=== PATIENT | female | born 1970 | race African-American/Black ===

== ENCOUNTER 2017-12-05 07:40 | Emergency (ER) | payer MEDICAID ==
[~2017-12-05] VITALS: Ht 170.2 cm; Wt 104.3 kg
[2017-12-05 07:55] VITALS: BP 176/97
[2017-12-05] MEDS ORDERED: IBUPROFEN 800 MG TAB PO ONE (10:00)
== END 2017-12-05 10:09 | disposition home or self-care (01) ==
LOC: ER 07:40
DX: M77.52 Other enthesopathy of left foot and ankle (principal)
CPT/HCPCS: 73610

== ENCOUNTER 2018-08-06 18:25 | Emergency (ER) | payer MEDICAID ==
[~2018-08-06] VITALS: Ht 170.2 cm; Wt 104.3 kg
[2018-08-06 22:08] VITALS: BP 137/84
[2018-08-06] MEDS ORDERED: HYDROcodone-ACET 10/325MG TAB PO ONE (22:45)
[2018-08-06] MEDS ORDERED: IBUPROFEN 800 MG TAB PO ONE (23:00)
== END 2018-08-06 23:27 | disposition home or self-care (01) ==
LOC: ER 18:25
DX: M62.838 Other muscle spasm (principal); V48.5XXA Car driver injured in noncollision transport accident in traffic accident, initial encounter; Y93.89 Activity, other specified; Y99.8 Other external cause status; Y92.89 Other specified places as the place of occurrence of the external cause
CPT/HCPCS: 72040; 72100

== ENCOUNTER 2018-08-25 18:45 | Emergency (ER) | payer MEDICAID ==
[~2018-08-25] VITALS: Ht 170.2 cm; Wt 106.6 kg
[2018-08-25 19:01] VITALS: BP 163/92
[2018-08-25] MEDS ORDERED: KETOROLAC TROMETH 60MG/2ML VIAL IM ONE (22:15)
[2018-08-25] MEDS ORDERED: methylPREDNISolone SOD SUCC 125 MG/2 ML VL IM ONE (22:15)
== END 2018-08-25 22:46 | disposition home or self-care (01) ==
LOC: ER 18:48
DX: S33.5XXA Sprain of ligaments of lumbar spine, initial encounter (principal); M62.838 Other muscle spasm; V43.52XA Car driver injured in collision with other type car in traffic accident, initial encounter; Y93.89 Activity, other specified; Y92.488 Other paved roadways as the place of occurrence of the external cause; Y99.8 Other external cause status
CPT/HCPCS: 96372; 99284; J1885; J2930

== ENCOUNTER 2023-11-07 14:13 | Emergency (ER) | payer MEDICAID ==
[~2023-11-07] VITALS: Ht 170.2 cm; Wt 123.3 kg
[~2023-11-07 14:13] MED LIST: ACET500T58 PO; ALBU108A5 IN; BENZ100C19 PO; LORA-483 GT
[2023-11-07 15:06] LABS: Basophils # (auto) 0 10 ^3/uL (0-0.2); Basophils % (auto) 0.6 % (0.0-2.0); Eosinophils # (auto) 0.1 10 ^3/uL (0-0.8); Eosinophils % (auto) 1.6 % (0.0-7.0); Hematocrit 37.5 % (36.0-46.0); Hemoglobin 12.1 g/dL (12.2-16.2); Lymphocytes # (auto) 1.9 10 ^3/uL (0.4-5.4); Lymphocytes % (auto) 35.5 % (10.0-50.0); Mean Corpuscular Hemoglobin 27.7 pg (28.0-32.0); Mean Corpuscular Hgb Conc. 32.4 g/dL (32.0-36.0); Mean Corpuscular Volume 85.5 fL (80.0-100.0); Monocytes # (auto) 0.3 10 ^3/uL (0-1.3); Monocytes % (auto) 6.5 % (0.0-12.0); Neutrophils % (auto) 55.8 % (37.0-80.0); Red Blood Cells 4.39 10^6/uL (4.0-5.20); Red Cell Distribution Width 15.6 % (11.8-14.3); White Blood Cell 5.3 10^3/uL (4.4-10.8)
[2023-11-07] MEDS ORDERED: FURO1TAB33 PO (15:08)
[2023-11-07 15:29] LABS: INR 0.98 (0.9-1.15); Prothrombin Time 10.3 sec (9.3-11.8)
[2023-11-07 16:15] LABS: Alanine Aminotransferase 25 U/L (7-40); Albumin 4.3 g/dL (3.2-4.8); Alkaline Phosphatase 69 U/L (46-116); Anion Gap 8 (5-15); Aspartate Aminotransferase 28 U/L (13-40); BUN/Creatinine Ratio 11.9 (10.0-20.0); Bilirubin, Total 0.7 mg/dL (0.2-1.0); Blood Urea Nitrogen 12 mg/dL (9-23); Calcium 9.4 mg/dL (8.5-10.1); Carbon Dioxide 24 mmol/L (20-30); Chloride 107 mmol/L (98-107); Glucose 90 mg/dL (74-106); Potassium 4.1 mmol/L (3.5-5.1); Sodium 139 mmol/L (136-145)
[2023-11-07 18:08] VITALS: BP 122/76; PULSE 64; RESP 20; TEMP 97.7; O2SAT 100
== END 2023-11-07 18:09 | disposition home or self-care (01) ==
LOC: ER 14:13
DX: R60.0 Localized edema (principal); I10 Essential (primary) hypertension
CPT/HCPCS: 36415; 71045; 80053; 83880; 84484; 85025; 85610; 93005; 93970

== ENCOUNTER 2025-04-07 13:59 | Emergency (ER) | payer MEDICAID ==
[~2025-04-07] VITALS: Ht 170.2 cm; Wt 126.4 kg
[~2025-04-07 13:59] MED LIST changes: +FURO1TAB33 PO
--- NOTE | 2025-04-07 14:46 | DVH ---
CLINICAL INDICATION: right lumbar and flank pain TECHNIQUE: 3 radiographic views of the lumbar spine were obtained. Comparison: None FINDINGS/IMPRESSION: There is no evidence of acute fracture or dislocation. The visualized joint space is well maintained. The alignment is anatomical. There is no radiopaque foreign body. HS:Y
[2025-04-07 14:52] LABS: Basophils # (auto) 0 10 ^3/uL (0-0.2); Basophils % (auto) 0.4 % (0.0-2.0); Eosinophils # (auto) 0.1 10 ^3/uL (0-0.8); Eosinophils % (auto) 1.1 % (0.0-7.0); Hematocrit 42.3 % (36.0-46.0); Lymphocytes # (auto) 2.4 10 ^3/uL (0.4-5.4); Lymphocytes % (auto) 39.6 % (10.0-50.0); Mean Corpuscular Hgb Conc. 33.1 g/dL (32.0-36.0); Mean Corpuscular Volume 81.4 fL (80.0-100.0); Monocytes # (auto) 0.4 10 ^3/uL (0-1.3); Monocytes % (auto) 6.8 % (0.0-12.0); Neutrophils # (auto) 3.1 10 ^3/uL (1.6-8.6); Neutrophils % (auto) 52.1 % (37.0-80.0); Nucleated Red Blood Cells % 0.1 %; Platelet Count (auto) 305 10^3/uL (140-450); Red Cell Distribution Width 15.1 % (11.8-14.3)
[2025-04-07 15:01] LABS: Chloride 105 mmol/L (98-107); Sodium 142 mmol/L (136-145)
[2025-04-07 15:02] LABS: Anion Gap 12 (5-15); Calcium 9.7 mg/dL (8.7-10.4); Carbon Dioxide 25 mmol/L (20-31); Potassium 2.8 mmol/L (3.5-5.1)
[2025-04-07 15:07] LABS: BUN/Creatinine Ratio 14.4 (10.0-20.0); Blood Urea Nitrogen 17 mg/dL (9-23); Glucose 125 mg/dL (74-106)
--- NOTE | 2025-04-07 15:07 | ED.PDOC ---
General HPI Comments 54 year old female presents to the ED with a chief compliant of RT flank pain onset 2 weeks. Patient states she has been experiencing RT flank pain radiating to RT low back. She was lifting objects about 1 month ago, heard a "pop" low back, since then has been experiencing intermittent pain. Denies any PMHx as well as diarrhea, vomiting, chest pain, shortness of breath, fevers, chills, headache, dizziness. No other symptoms or modifying factors present at this time. Chief Complaint: Abdominal Pain Time Seen by MD: 14:30 Primary Care Provider: DANYELLE [place] Reviewed notes: Medications, Allergies Allergies: Coded Allergies: No Known Drug Allergy (Verified Allergy, Unknown, 01/19/23) Home Meds Active Scripts Furosemide (Lasix) 20 Mg Tb, 1 TAB PO DAILY for 7 Days, #7 TAB 1 Refill Prov:BELLA MARMOLEJO MD 11/07/23 Loratadine (CLARITIN TABLET) 10 Mg Tb, 10 MG GT DAILY for 20 Days, #20 TAB Prov:DEVAN MCGILL [facility] 09/17/22 Benzonatate (Tessalon Perles) 100 Mg Cap, 1 CAP PO TID, #10 CAP Prov:DEVAN MCGILL [facility] 09/17/22 Acetaminophen (Acetaminophen) 500 Mg Tab, 500 MG PO Q4HPRN PRN, #30 TAB Prov:DEVAN MCGILL [facility] 09/17/22 Albuterol Sulfate (Albuterol Sulfate Hfa) 108 Mcg/Act Aer, 108 MCG IN Q4HPRN PRN, #1 AER Prov:DEVAN MCGILL [facility] 09/17/22 Information Source: Patient Mode of Arrival: Ambulatory Severity: Moderate Timing: Weeks Duration: Since onset Prehospital treatment: None Onset: Spontaneous Symptoms: None History of: None Location: (R) Flank Modifying factors: None associated signs and symptoms: Flank Pain, Back Pain Past Medical History PAST MEDICAL HISTORY: HTN Surgical History: Denies all surgeries SCHOOL CLERK History: Denies all SCHOOL CLERK Hx Family History Family History: Unknown Social History Smoker: Non-Smoker Alcohol: Denies ETOH Use Drugs: Denies Drug Use Lives In: Home Constitutional: denies: chills, diaphoresis, fatigue, fever, malaise, sweats, weakness, others EENTM: denies: blurred vision, double vision, ear bleeding, ear discharge, ear drainage, ear pain, ear ringing, eye pain, eye redness, hearing loss, mouth pain, mouth swelling, nasal discharge, nose bleeding, nose congestion, nose pain, photophobia, tearing, throat pain, throat swelling, voice changes, others Respiratory: denies: cough, hemoptysis, orthopnea, SOB at rest, shortness of breath, SOB with excertion, stridor, wheezing, others Cardiovascular: denies: chest pain, dizzy spells, diaphoresis, Dyspnea on exertion, edema, irregular heart beat, left arm pain, lightheadedness, palpitations, PND, syncope, others Gastrointestinal: reports: abdominal pain; denies: abdomen distended, blood streaked bowels, constipated, diarrhea, dysphagia, difficulty swallowing, hematemesis, melena, nausea, poor appetite, poor fluid intake, rectal bleeding, rectal pain, vomiting, others Genitourinary: reports: flank pain (RT); denies: abnormal vagina bleeding, burning, dyspareunia, dysuria, frequency, hematuria, incontinence, pain, , vagina discharge, urgency, others Neurological: denies: dizziness, fainting, headache, left sided numbness, left sided weakness, numbness, paresthesia, pre-existing deficit, right sided numbness, right sided weakness, seizure, speech problems, tingling, tremors, weakness, others Musculoskeletal: reports: back pain (RT low back); denies: gout, joint pain, joint swelling, muscle pain, muscle stiffness, neck pain, others Integumetry: denies: bruises, change in color, change in hair/nails, dryness, laceration, lesions, lumps, rash, wounds, others Allergic/Immunocompromised: denies: Difficulty Healing, Frequent Infections, Hives, Itching, others Hematologic/Lymphatic: denies: anemia, blood clots, easy bleeding, easy bruising, swollen glands, others Endocrine: denies: excessive hunger, excessive sweating, excessive thirst, excessive urination, flushing, intolerance to cold, intolerance to heat, unexplained weight gain, unexplained weight loss, others Psychiatric: denies: anxiety, bipolar disorder, depression, hopeless, panic disorder, schizophrenia, sleepless, suicidal, others All Other Systems: Reviewed and Negative Physical Exam General Appearance: No Apparent Distress, Normal HEENT: Normal ENT Inspection, Pharynx Normal, TMs Normal Neck: Full Range of Motion, Non-Tender, Normal, Normal Inspection Respiratory: Chest Non-Tender, Lungs Clear, No Accessory Muscle Use, No Respiratory Distress, Normal Breath Sounds Cardiovascular: No Edema, No JVD, No Murmur, No Gallop, Normal Peripheral Pulses, Regular Rate/Rhythm Breast Exam: Deferred Gastrointestinal: No Organomegaly, Non Tender, No Pulsatile Mass, Normal Bowel Sounds, Soft Genitalia: Deferred Pelvic: Deferred Rectal: Deferred Extremities: No calf tenderness, Normal capillary refill, Normal inspection, Normal range of motion, Non-tender, No pedal edema Musculoskeletal : Apperance: Normal Neurologic: Alert, plan manager II-XII nml as Tested, No Motor Deficits, Normal Affect, Normal Mood, No Sensory Deficits Cerebellar Function: Normal Reflexes: Normal Skin: Dry, Normal Color, Warm Lymphatic: No Adenopathy Was a procedure done? Was a procedure done?: No Differential Diagnosis Kidney stone (Female): Musculoskeletal pain, Pyelonephritis, Strain, Urolithiasis Kidney stone (Male): N/A Penile/Scrotal: N/A Urinary Problem (Male): N/A Urinary Problem (Female): N/A X-Ray, Labs, Meds, VS Vital Signs Date Time Temp Pulse Resp B/P (MAP) Pulse Ox O2 Delivery O2 Flow Rate FiO2 04/07/25 14:04 98.2 96 18 148/86 (106) 95 98.2 Lab Test 04/07/25 14:45 04/07/25 14:36 Range/Units Urine Color Yellow Yellow Urine Clarity Clear Clear Urine pH 6.0 5.0-9.0 Urine Specific [place] 1.038 H 1.001-1.035 Urine Protein 1+ H Negative Urine Ketones Trace Negative Urine Blood Negative Negative /uL Urine Nitrite Negative Negative Urine Bilirubin Negative Negative Urine Urobilinogen 3 H Negative mg/dL Urine Leukocyte Esterase Negative Negative /uL Urine RBC 1 0 - 4 /hpf Urine Microscopic WBC 2 0-5 /HPF Urine Squamous Epithelial Cells Few <5 /hpf Urine Bacteria None seen None Seen /hpf Urine Mucus Few None Seen Urine Glucose Normal Normal mg/dL White Blood Count 6.0 4.4-10.8 10^3/uL Red Blood Count 5.20 4.0-5.20 10^6/uL Hemoglobin 14.0 12.2-16.2 g/dL Hematocrit 42.3 36.0-46.0 % Mean Corpuscular Volume 81.4 80.0-100.0 fL Mean Corpuscular Hemoglobin 27.0 L 28.0-32.0 pg Mean Corpuscular Hemoglobin Concent 33.1 32.0-36.0 g/dL Red Cell Distribution Width 15.1 H 11.8-14.3 % Platelet Count 305 140-450 10^3/uL Mean Platelet Volume 7.6 6.9-10.8 fL Neutrophils (%) (Auto) 52.1 37.0-80.0 % Lymphocytes (%) (Auto) 39.6 10.0-50.0 % Monocytes (%) (Auto) 6.8 0.0-12.0 % Eosinophils (%) (Auto) 1.1 0.0-7.0 % Basophils (%) (Auto) 0.4 0.0-2.0 % Neutrophils # (Auto) 3.1 1.6-8.6 10 ^3/uL Lymphocytes # (Auto) 2.4 0.4-5.4 10 ^3/uL Monocytes # (Auto) 0.4 0-1.3 10 ^3/uL Eosinophils # (Auto) 0.1 0-0.8 10 ^3/uL Basophils # (Auto) 0 0-0.2 10 ^3/uL Nucleated Red Blood Cells 0.1 % Sodium Level 142 136-145 mmol/L Potassium Level 2.8 L 3.5-5.1 mmol/L Chloride Level 105 98-107 mmol/L Carbon Dioxide Level 25 20-31 mmol/L Anion Gap 12 5-15 Blood Urea Nitrogen 17 9-23 mg/dL Creatinine 1.18 H 0.550-1.02 mg/dL Glomerular Filtration Rate Calc 56 >90 mL/min BUN/Creatinine Ratio 14.4 10.0-20.0 Serum Glucose 125 H 74-106 mg/dL Calcium Level 9.7 8.7-10.4 mg/dL Time of 1ST Reevaluation: 15:00 Reevaluation 1ST: Unchanged Patient Education/Counseling: Diagnosis, Treatment, Prognosis Family Education/Counseling: No Family Present SEPSIS Sepsis Screen Date sepsis recognized/suspect: Apr 07, 2025 Time Sepsis recognized/suspect: 140 Recent Procedure: No On Antibiotic Therapy: No Respiratory Rate >20: No Heart Rate >90: Yes Temp<36 C (96.8 F) or >38.3 C: No SBP <90 or MAP <65 mmHG: No New Acute Mental Status Change: No Is the patient on CPAP, BIPAP,: No Physician Orders Lumbar Spine 3 View (04/07/25 14:15) Vital Signs Date Time Temp Pulse Resp B/P (MAP) Pulse Ox O2 Delivery O2 Flow Rate FiO2 04/07/25 14:04 98.2 96 18 148/86 (106) 95 98.2 Laboratory Tests Test 04/07/25 14:36 White Blood Count 6.0 10^3/uL (4.4-10.8) Departure 1 Departure Time of Disposition: 16:08 (Patient likely with a musculoskeletal strain. We will discharge patient home with outpatient follow up.) Impression: Primary Impression: Lumbar strain Qualified Codes: S39.012A - Strain of muscle, fascia and tendon of lower back, initial encounter Disposition: HOME / SELF CARE / HOMELESS Condition: Stable Additional Instructions: You likely have a a strain lower back muscle. You were referred to her back doctor. Please call for an appointment. For pain you can take the followinam: Ibuprofen 400mg with food Noon: Acetaminophen 1000mg 4pm: Ibuprofen 400mg with food 8pm: Acetaminophen 1000mg You were prescribed oxycodone to take as needed for breakthrough pain. You were prescribed muscle relaxers. Please take as directed You should follow up with your regular doctor within one week to ensure you are doing better. If your symptoms worsen or you have any other concerns then please return to the ER. e-Prescriptions Oxycodone HCl (Oxycodone Hydrochloride) 5 Mg Tab 5 MG PO QID PRN for 4 Days, #16 TAB Prov: CARMEN AZAR MD 04/07/25 Cyclobenzaprine Hcl (Cyclobenzaprine Hcl) 10 Mg Tab 10 MG PO TID PRN for 5 Days, #15 TAB Prov: CARMEN AZAR MD 04/07/25 Discharged With: Self Critical Care Note Critical Care Time?: No Stability Stability form required: No I personally scribed for CARMEN AZAR MD ([email or web address]) on 04/07/25 at 15:07. Electronically submitted by Graciela Dunn ([email or web address]). CARMEN AZAR MD Apr 07, 2025 15:07
[2025-04-07 15:14] LABS: Urine Bacteria None Seen /hpf (None Seen)
[2025-04-07 15:46] LABS: Urine Blood Negative /uL (Negative); Urine Clarity Clear (Clear); Urine Color Yellow (Yellow); Urine Mucus FEW (None Seen); Urine Protein, UAD 1+ (Negative); Urine Specific Gravity 1.038 (1.001-1.035); Urine Squamous Epithelial Cell FEW /hpf (<5); Urine Urobilinogen 3 mg/dL (Negative); Urine WBC 2 /HPF (0-5)
[2025-04-07] MEDS ORDERED: OXYC-900 PO (16:11)
[2025-04-07] MEDS ORDERED: CYCL-839 PO (16:11)
[2025-04-07 20:30] VITALS: BP 149/104; PULSE 88; RESP 18; TEMP 98.2; O2SAT 99
[2025-04-07] MEDS: HYDROcodone-ACET 5/325MG TAB PO ONE (20:31)
[2025-04-07] MEDS: CYCLOBENZAPRINE HCL 10 MG TAB PO ONE (20:31)
== END 2025-04-07 21:25 | disposition home or self-care (01) ==
LOC: ER 14:08
DX: S39.012A Strain of muscle, fascia and tendon of lower back, initial encounter (principal); I10 Essential (primary) hypertension; Z79.899 Other long term (current) drug therapy; X58.XXXA Exposure to other specified factors, initial encounter; Y93.89 Activity, other specified; Y92.89 Other specified places as the place of occurrence of the external cause; Y99.8 Other external cause status
CPT/HCPCS: 36415; 72100; 80048; 81001; 85025